=== PATIENT | female | born 1995 | race Caucasian/White ===

== ENCOUNTER 2019-09-12 11:08 | Outpatient (CLI) | payer BC ==
--- NOTE | 2019-09-12 12:56 | Ultrasound Report ---
Reason: POSITIVE TEST Procedure Date: 09/12/2019 Accession Number: [id number] / [id number] Procedure: US - OB First Trimester CPT Code: Final Report FULL RESULT: EXAM: FIRST TRIMESTER OBSTETRIC ULTRASOUND (Less than 11 weeks) EXAM DATE: 09/12/2019 12:12 PM. CLINICAL HISTORY: POSITIVE TEST. LMP: 06/11/2019. COMPARISONS: None. TECHNIQUE: Transabdominal ultrasound examination with static image documentation. CLINICAL DATES: EGA 13 weeks, 2 days with MONSERRAT 03/17/2020 based on LMP. ASSESSMENT: Gestational Sac: Single intrauterine. Mean gestational sac diameter: 70 mm = 13 weeks, 4 days. Embryo: CRL (crown-rump length) 72 mm = 13 weeks, 2 days. Cardiac activity: 156 beats per minute. Yolk sac: Not seen. Amniotic fluid: Not accurately assessed at this gestational age. Early placenta: Posterior. Other: No perigestational fluid collection demonstrated. MATERNAL STRUCTURES: Uterus: Anteverted. Unremarkable. Cervix: Closed. 4.1 cm on transabdominal imaging. Right Ovary/Adnexa: The ovary measures 2.8 x 1.7 x 2.2 cm, volume 5.4 cc. Corpus luteal cyst measures 1.6 x 1.2 x 1.2 cm.. Left Ovary/Adnexa: The ovary measures 2.5 x 0.8 x 3.2 cm, volume 3.1 cc. Unremarkable. Free Fluid: None. Other: None. IMPRESSION: 1. Single viable intrauterine at EGA 03/17/2020 with MONSERRAT based on crown-rump length, which is concordant with clinical dates. 2. Assigned dating is MONSERRAT 03/17/2020 based on current ultrasound and LMP. RADIA
== END 2019-09-12 11:09 | disposition home or self-care (01) ==
LOC: DI 11:08
PROVIDERS: ATTEND Advanced Practice Midwife
DX: Z32.01 Encounter for pregnancy test, result positive (principal)
CPT/HCPCS: 76801

== ENCOUNTER 2019-09-14 07:00 | Outpatient (CLI) | payer BC ==
[2019-09-14 18:51] LABS: MUDS CUTOFF CONCENTRATIONS CUTOFF CONC BELOW:
[2019-09-14 19:17] LABS: BILIRUBIN,URINE NEGATIVE (NEGATIVE); GLUCOSE, URINE (UA) NEGATIVE (NEGATIVE); KETONES,URINE (UA) NEGATIVE (NEGATIVE); LEUKOCYTE ESTERASE, URINE NEGATIVE (NEGATIVE); NITRITE,URINE NEGATIVE (NEGATIVE); OCCULT BLOOD,URINE NEGATIVE (NEGATIVE); PROTEIN,URINE NEGATIVE (NEGATIVE); UROBILINOGEN,URINE 0.2 (NORMAL) E.U./dL (NORMAL)
[2019-09-14 19:27] LABS: AMPHETAMINE SCREEN,URINE NEGATIVE (NEGATIVE); BENZODIAZEPINES SCREEN, URINE NEGATIVE (NEGATIVE); COCAINE SCREEN URINE NEGATIVE (NEGATIVE); METHADONE SCREEN, URINE NEGATIVE (NEGATIVE); METHAMPHETAMINES SCREEN, URINE NEGATIVE (NEGATIVE); OPIATE SCREEN, URINE NEGATIVE (NEGATIVE); OXYCODONE SCREEN, URINE NEGATIVE (NEGATIVE); PROPOXYPHENE SCREEN, URINE NEGATIVE (NEGATIVE); TRICYCLIC ANTIDEPRESSANT,URINE NEGATIVE (NEGATIVE)
[2019-09-14 19:35] LABS: CLARITY,URINE CLEAR (CLEAR)
[2019-09-14 19:36] LABS: BACTERIA,URINE None Seen /HPF (None Seen); RBC,URINE None Seen /HPF (0-5); SQUAMOUS EPITHELIAL CELL,UR RARE Squamous (<= Few)
[2019-09-14 19:37] LABS: AMORPHOUS SEDIMENT,UR Marked /LPF
[2019-09-14 23:46] LABS: TRICHOMONAS VAGINALIS DNA NEGATIVE (NEGATIVE)
== END 2019-09-14 23:59 | disposition home or self-care (01) ==
LOC: LAB.R 07:00
PROVIDERS: ATTEND Advanced Practice Midwife
DX: Z34.90 Encounter for supervision of normal pregnancy, unspecified, unspecified trimester (principal); Z11.3 Encounter for screening for infections with a predominantly sexual mode of transmission
CPT/HCPCS: 80306; 81001; 87086; 87491; 87591; 87661

== ENCOUNTER 2019-10-15 09:14 | Outpatient (CLI) | payer BC ==
[2019-10-15 09:40] LABS: BASOPHILS % (AUTO) 0.4 %; EOSINOPHILS # (AUTO) 0.1 10^3/uL (0.0-0.7); EOSINOPHILS % (AUTO) 1.4 %; HGB - HEMOGLOBIN 12.7 g/dL (12.0-16.0); LYMPHOCYTES % (AUTO) 24.7 %; MEAN CORPUSCULAR HEMOGLOBIN 29.5 pg (27.0-31.0); MEAN CORPUSCULAR HGB CONC 33.4 g/dL (32.0-36.0); MEAN CORPUSCULAR VOLUME 88.2 fL (81.0-99.0); MONOCYTES # (AUTO) 0.6 10^3/uL (0.0-1.0); NEUTROPHILS # (AUTO) 5.3 10^3/uL (1.5-6.6); NEUTROPHILS % (AUTO) 66.1 %; PLT - PLATELET COUNT 177 10^3/uL (130-450); RED BLOOD COUNT 4.31 10^6/uL (4.20-5.40); RED CELL DISTRIBUTION WIDTH 12.5 % (12.0-15.0)
[2019-10-16 12:40] LABS: HIV AG/AB 4TH GEN NON-REACTIVE (NON-REACTIVE)
[2019-10-16 13:05] LABS: HEPATITIS B SURFACE ANTIGEN NON-REACTIVE (NON-REACTIVE); HEPATITIS C ANTIBODY NON-REACTIVE (NON-REACTIVE)
== END 2019-10-15 09:15 | disposition home or self-care (01) ==
LOC: LAB 09:14
PROVIDERS: ATTEND Advanced Practice Midwife
DX: Z34.90 Encounter for supervision of normal pregnancy, unspecified, unspecified trimester (principal); Z36.0 Encounter for antenatal screening for chromosomal anomalies
CPT/HCPCS: 36415; 81511; 81599; 85025; 86592; 86762; 86803; 86850; 86900; 86901; 87340; 87389

== ENCOUNTER 2019-10-30 11:59 | Outpatient (CLI) | payer BC ==
--- NOTE | 2019-10-30 15:37 | Ultrasound Report ---
PROCEDURE: OB Detailed Eval INDICATIONS: SCREENING OUTSIDE/PRIOR DATING DATA: Last menstrual period (LMP): 06/11/2019. LMP-based estimated date of delivery (MONSERRAT): 03/17/2020. First dating scan (date and location): 09/12/2019. Estimated date of delivery (MONSERRAT) from first dating scan: 03/17/2020. TECHNIQUE: Real-time scanning was performed of the fetus, with image documentation and biometric measurements. COMPARISON: OB ultrasound 09/12/2019 FINDINGS: General: A single living intrauterine gestation is present. Presentation: Variable Placenta: Placental position is posterior, without previa. Amniotic fluid index: 14.7 cm cm, 55th percentile for gestational age. 4.0 cm heart rate: 140 beats per minute. Maternal cervical canal: 4.0 cm long; normal length is 2.5 cm or more. biometrics: Biparietal diameter: 4.8 cm 20 weeks 3 days Head circumference: 17.5 cm 20 weeks 0 days Abdominal circumference: 15 cm 20 weeks 1 day Femur length: 3.1 cm 19 weeks 3 days Estimated gestational age from initial scan: 20 weeks 1 day Composite gestational age from present scan: 19 weeks 5 days Estimated weight and percentile: 318 g, 30th percentile Measurement variability in biometric dating: +/- 10 days from 12-20 weeks gestation, +/- 2 weeks from 20-30 weeks gestation, +/- 3 weeks at 30 weeks gestation or later. Anatomic survey: Neuro: Ventricles are normal at less than 10 mm. Cisterna magna is normal at 3-11 mm. Cerebellum i s normal in size and morphology. Nuchal skin fold: Normal at less than 6 mm between 14 and 20 weeks gestational age. Face: Nose and lips, facial profile are normal. Spine: No evidence for spina bifida. Heart: 4-chambered heart and outflow tracts are suboptimally evaluated. Diaphragm: Diaphragm is intact. Stomach: Left-sided stomach is present. Kidneys: No hydronephrosis. Normal is less than 5 mm in 2nd trimester, less than 7 mm in 3rd trimester. Cord: 3 vessel cord has orthotopic insertion. Bladder: Normal in size. Extremities: All 4 extremities are visualized. IMPRESSION: 1. Single live intrauterine with ultrasound gestational age today 19 weeks 5 days compared to 20 weeks 1 day from initial ultrasound. 2. 4 chambered heart and outflow tracts are suboptimally evaluated. Recommend follow-up ultrasound fo r additional evaluation. Reviewed by: Yvonne Steele MD on 10/30/2019 3:35 PM PDT Approved by: Yvonne Steele MD on 10/30/2019 3:35 PM PDT Station ID: [id number]
== END 2019-10-30 12:00 | disposition home or self-care (01) ==
LOC: DI 11:59
PROVIDERS: ATTEND Advanced Practice Midwife
DX: Z36.89 Encounter for other specified antenatal screening (principal)
CPT/HCPCS: 76811

== ENCOUNTER 2019-11-21 14:35 | Outpatient (CLI) | payer BC ==
--- NOTE | 2019-11-21 18:24 | Ultrasound Report ---
PROCEDURE: OB F/U or Repeat INDICATIONS: SUPERVISION OF OUTSIDE/PRIOR DATING DATA: Last menstrual period (LMP): 06/11/2019. LMP-based estimated date of delivery (MONSERRAT): 03/17/2020. First dating scan (date and location): 09/12/2019, Dr. Goodman's office. Estimated date of delivery (MONSERRAT) from first dating scan: 03/17/2020. TECHNIQUE: Real-time scanning was performed of the fetus, with image documentation and biometric measurements. Endovaginal scanning: Not performed COMPARISON: OB ultrasound dated 10/30/2019 FINDINGS: General: A single living intrauterine gestation is present. Presentation: Breech Placenta: Placental position is posterior, without previa. Amniotic fluid index: 14.1 cm, 42.9 are sent for gestational age. heart rate: 136 beats per minute. Maternal cervical canal: 4.6 cm long; normal length is 2.5 cm or more. Other: The four-chamber heart and ventricular outflow tracts have a normal sonographic appearance. IMPRESSION: 1. Single live uterine gestation in breech position. 2. Normal sonographic appearance of the four-chamber heart and ventricular outflow tracts. Reviewed by: Makenna Costello MD on 11/21/2019 6:23 PM PDT Approved by: Makenna Costello MD on 11/21/2019 6:23 PM PDT Station ID: [id number]
== END 2019-11-21 14:36 | disposition home or self-care (01) ==
LOC: DI 14:35
PROVIDERS: ATTEND Advanced Practice Midwife
DX: Z34.90 Encounter for supervision of normal pregnancy, unspecified, unspecified trimester (principal)
CPT/HCPCS: 76816

== ENCOUNTER 2019-12-25 13:20 | Outpatient (CLI) | payer BC ==
[2019-12-25 14:43] LABS: HGB - HEMOGLOBIN 12.4 g/dL (12.0-16.0); MEAN CORPUSCULAR HEMOGLOBIN 31.1 pg (27.0-31.0); MEAN CORPUSCULAR HGB CONC 34.1 g/dL (32.0-36.0); MEAN CORPUSCULAR VOLUME 91.2 fL (81.0-99.0); MEAN PLATELET VOLUME 10.8 fL (7.9-10.8); RED BLOOD COUNT 3.99 10^6/uL (4.20-5.40); RED CELL DISTRIBUTION WIDTH 12.9 % (12.0-15.0); WHITE BLOOD COUNT 9.6 x10^3/uL (4.8-10.8)
== END 2019-12-25 13:21 | disposition home or self-care (01) ==
LOC: LAB 13:20
PROVIDERS: ATTEND Advanced Practice Midwife
DX: Z34.90 Encounter for supervision of normal pregnancy, unspecified, unspecified trimester (principal); Z36.89 Encounter for other specified antenatal screening
CPT/HCPCS: 36415; 82950; 85027

== ENCOUNTER 2020-02-19 08:00 | Outpatient (CLI) | payer BC | END 2020-02-19 23:59 | disposition home or self-care (01) | LOC: LAB.R 08:00 | PROVIDERS: ATTEND Nurse Practitioner Obstetrics & Gynecology | DX: Z36.85 Encounter for antenatal screening for Streptococcus B (principal) | CPT/HCPCS: 87797 ==

== ENCOUNTER 2020-02-24 09:15 | Outpatient (CLI) | payer BC ==
[2020-02-24 09:40] VITALS: BP 103/61
[2020-02-24] MEDS ORDERED: ACETAMINOPHEN 500 MG TABLET PO ONE (10:00)
[2020-02-24 10:38] LABS: BILIRUBIN,URINE NEGATIVE (NEGATIVE); GLUCOSE, URINE (UA) NEGATIVE (NEGATIVE); KETONES,URINE (UA) TRACE mg/dL (NEGATIVE); LEUKOCYTE ESTERASE, URINE NEGATIVE (NEGATIVE); NITRITE,URINE NEGATIVE (NEGATIVE); OCCULT BLOOD,URINE NEGATIVE (NEGATIVE); PROTEIN,URINE NEGATIVE (NEGATIVE); UROBILINOGEN,URINE 0.2 (NORMAL) E.U./dL (NORMAL)
[2020-02-24 10:50] LABS: CLARITY,URINE CLEAR (CLEAR)
--- NOTE | 2020-02-24 11:16 | PROVIDER PROGRESS NOTE ---
- HPI Chief Complaint: Headache Current : Current EDU 03/17/20 Gestation 36 Weeks and 6 Days 3 Para 1 Vital Signs Temperature 36.9 C 02/24/20 09:31 Heart Rate 108 H 02/24/20 09:31 Respiratory Rate 20 02/24/20 09:31 Blood Pressure 103/61 02/24/20 09:31 O2 Saturation 98 02/24/20 09:31 Temperature 36.9 C 02/24/20 09:31 Heart Rate 108 H 02/24/20 09:31 Respiratory Rate 20 02/24/20 09:31 Blood Pressure 103/61 02/24/20 09:31 O2 Saturation 98 02/24/20 09:31 - Procedures OB Procedure Performed: NST NST Procedure: Start time 924 Stop time 1024 Service Date of procedure: 02/24/20 - Plan Plan: HPI: Elise is a 24yo @ 36.6wks gestation who presents on 02/24/2020 with c/o frontal headache in the presence of blurred vision. She reports her headache started yesterday evening and was manageable but it was the blurred vision that made her feel slightly concerned. She states consistent movement was present and she did not have any swelling so she thought perhaps she was just tired so she went to sleep. She woke up this morning and approximately 1 hour a fter being up and around she started to notice her headache return. She denies worsening headache. Blurred vision present but less significant than last night. She has not taken anything for her headache. She admittedly has not consumed very much water over the past several days. She denies swelling and RUQ or epigastric pain. She denies vaginal bleeding or leakage of fluid. She reports +FM. O: BP normotensive. Has been normotensive throughout her course. Heart RRR w/o M/G/R, lungs CTAB. Abdomen gravid, soft, nontender. No RUQ pain. DTRs WNL - no clonus FHR baseline 140, moderate variability, + accels, no decels Urine protein - negative 1000mg PO Tylenol x 1 administered - pt improved A: 24yo @ 36.6wks gestation FHR Category I Normotensive Headache improved with administration of tylenol P: Pt released home with precautions. Encouraged increased fluid intake. Encouraged tylenol 1000mg q 8hr PRN headache. Reviewed PIH warning s/sx and when to present. Pt has f/u in the office tomorrow - advised her to keep this appt. Pt verbalized understanding and agrees to above plan. Denies further questions or concerns at this time. NST: Performed 02/24/2020; Read 02/24/2020 Start time 0925 Stop time 1025 Reactive. FHR baseline 140, moderate variability, + accels, no decels DIAGNOSIS: Headache in
== END 2020-02-24 11:00 | disposition home or self-care (01) ==
LOC: WFO 09:15 → FBP 09:17 → WFO 11:00
PROVIDERS: ATTEND Nurse Practitioner Obstetrics & Gynecology
DX: O99.891 Other specified diseases and conditions complicating pregnancy (principal); R51.9 Headache, unspecified; H53.8 Other visual disturbances
CPT/HCPCS: 81003; 99214; A9270

== ENCOUNTER 2020-03-11 17:00 | Observation (INO) | payer BC ==
[2020-03-11] MEDS ORDERED: SODIUM CHLORIDE FLUSH 0.9% 10 ML SYRINGE IVP PRN (17:34)
[2020-03-11] MEDS ORDERED: miSOPROStoL 100 MCG TABLET BC ONE (17:35)
[2020-03-11 18:01] LABS: BASOPHILS % (AUTO) 0.3 %; EOSINOPHILS # (AUTO) 0.3 10^3/uL (0.0-0.7); EOSINOPHILS % (AUTO) 3.5 %; HGB - HEMOGLOBIN 11.1 g/dL (12.0-16.0); LYMPHOCYTES # (AUTO) 1.8 10^3/uL (1.5-3.5); LYMPHOCYTES % (AUTO) 19.3 %; MEAN CORPUSCULAR HEMOGLOBIN 29.4 pg (27.0-31.0); MEAN CORPUSCULAR HGB CONC 32.9 g/dL (32.0-36.0); MEAN CORPUSCULAR VOLUME 89.4 fL (81.0-99.0); MEAN PLATELET VOLUME 11.3 fL (7.9-10.8); MONOCYTES # (AUTO) 0.7 10^3/uL (0.0-1.0); MONOCYTES % (AUTO) 7.1 %; NEUTROPHILS # (AUTO) 6.6 10^3/uL (1.5-6.6); NEUTROPHILS % (AUTO) 69.5 %; PLT - PLATELET COUNT 178 10^3/uL (130-450); RED BLOOD COUNT 3.77 10^6/uL (4.20-5.40); RED CELL DISTRIBUTION WIDTH 12.7 % (12.0-15.0); WHITE BLOOD COUNT 9.5 x10^3/uL (4.8-10.8)
[2020-03-11 22:02] VITALS: BP 103/59
[2020-03-12] MEDS ORDERED: SODIUM CHLORIDE FLUSH 0.9% 10 ML SYRINGE IVP SCH (01:00)
--- NOTE | 2020-03-12 06:54 | PROVIDER PROGRESS NOTE ---
- HPI Chief Complaint: Other Current : Current EDU 03/17/20 Gestation 39 Weeks and 1 Days 3 Vital Signs Temperature 37.1 C 03/11/20 17:22 Heart Rate 90 03/11/20 17:22 Respiratory Rate 18 03/11/20 17:22 Blood Pressure 104/64 03/11/20 17:22 Temperature 36.9 C 03/11/20 21:55 Heart Rate 71 03/11/20 21:55 Respiratory Rate 18 03/11/20 21:55 Blood Pressure 103/59 L 03/11/20 21:55 O2 Saturation 96 03/11/20 21:55 - Procedures OB Procedure Performed: NST Diagnosis/Indication for NST: Other Service Date of procedure: 03/11/20 - Plan Plan: HPI: Elise presents today at approximately 1700 to [facility] for outpatient cervical ripening in anticipation for induction of labor secondary to severe, diffuse body rash. She experienced a similar rash in her previous and was given OTC cream by a visual basic .net developer which improved her rash. She states her last the onset of the rash occurred much earlier in at approximat ning 23wks gestation. She reports her current rash has been only minimally improved by the use of the OTC cream. She desires induction of labor at this time secondarily. She denies vaginal bleeding or leakage of fluid and denies contractions. She reports +FM. She is accompanied by her who is supportive at the bedside. Their mood is good and they are excited to start the process of having a baby. The pt states she would like to labor at home as long as it is safe for her to do so. She denies recent contact with any known COVID-19 positive individuals. She denies cough, fever, SOB, congestion, headache, or change in bowel habits. BP normotensive, T: afebrile. IV access obtained. Pt administered 50mcg BC misoprostol. Continuous monitoring x 4 hours - FHR Category I. FHR baseline 130s, moderate variability, + accels, no decels Intermittent uterine contractions q 2-5 minutes which palpate mild with soft resting tone. Pt rates contractions 0-2 on a pain scale. Following 4 hours of continuous monitoring the pt was released home with precautions. She was given instructions to return 24 hours after administration of misoprostol (1800). Will continue pre-induction cervical ripening vs initiation of pitocin at that time. Pt verbalized understanding and agrees to above plan. She denies further questions or concerns at this time.
== END 2020-03-11 22:06 | disposition home or self-care (01) ==
LOC: WFO 17:00 → FBP 17:04 → WFO 17:33 → FBP 17:34
PROVIDERS: ADMIT Nurse Practitioner Obstetrics & Gynecology; ATTEND Nurse Practitioner Obstetrics & Gynecology
DX: O99.891 Other specified diseases and conditions complicating pregnancy (principal); R21 Rash and other nonspecific skin eruption; Z3A.39 39 weeks gestation of pregnancy; Z20.828 Contact with and (suspected) exposure to other viral communicable diseases
CPT/HCPCS: 36415; 85025; 86850; 86900; 86901; 87635; A9270; G0378

== ENCOUNTER 2020-03-12 17:00 | Inpatient (IN) | payer BC ==
[2020-03-12] MEDS ORDERED: ACETAMINOPHEN 325 MG TABLET PO PRN (17:39)
[2020-03-12] MEDS ORDERED: SODIUM CHLORIDE FLUSH 0.9% 10 ML SYRINGE IVP PRN (17:39)
[2020-03-12] MEDS ORDERED: miSOPROStoL 200 MCG TABLET BC PRN (17:39)
[2020-03-12] MEDS ORDERED: ONDANSETRON 4 MG/2 ML VIAL IVP PRN (17:39)
[2020-03-12] MEDS ORDERED: LIDOCAINE-MPF 1% 30 ML VIAL ID PRN (17:39)
[2020-03-12] MEDS ORDERED: TRANEXAMIC ACID 1,000 MG in SODIUM CHLORIDE 0.9% 100ML 100 ML IV PRN (17:39)
[2020-03-12] MEDS ORDERED: OXYTOCIN 10 UNIT/ML VIAL IM PRN (17:39)
[2020-03-12] MEDS ORDERED: OXYTOCIN/SODIUM CHLORIDE 500 ML IV PRN (17:39)
[2020-03-12] MEDS ORDERED: CARBOPROST TROMETHAMINE 250 MCG/ML AMP IM PRN (17:39)
[2020-03-12] MEDS ORDERED: METHYLERGONOVINE 0.2 MG/ML VIAL IM PRN (17:39)
--- NOTE | 2020-03-12 17:49 | HISTORY & PHYSICAL EXAMINATION ---
Admit History - Visit Reason Visit Reason: Other - : 3 Parity: 1 Premature: 0 Ectopic: 0 : 1 Care: positive: [facility] Risk/History: positive: None Complications This : positive: None Smoking Status: Never smoker - Mother's Labs Mother's Blood Type: positive: O Mother's RH: positive: Positive GBS: positive: Group B Step Negative Rubella Status: positive: Non-immune Meds/Allgy - Allergies Allergies/Adverse Reactions: Allergies Allergy/AdvReac Type Severity Reaction Status Date / Time No Known Drug Allergies Allergy Verified 02/24/20 10:13 Review of Systems - Constitutional Constitutional: denies: Fatigue, Fever, Chills, Malaise - Eyes Eyes: denies: Blurred vision, Spots in vision, Dipolpia - Cardiovascular Cariovascular: denies: Irregular heart rate, Palpitations, Chest pain, Edema - Respiratory Respiratory: denies: Cough, SOB at rest - Gastrointestinal Gastrointestinal: denies: Constipation, Diarrhea, Change in bowel habits, Nausea, Vomiting - Integumentary Integumentary: reports: Rash, Pruritis - Neurological Neurological: denies: Headache Physical - Abdominal Exam Vital Signs: Temp Pulse Resp BP Pulse Ox 36.7 C 82 18 120/64 03/12/20 17:12 03/12/20 17:12 03/12/20 17:12 03/12/20 17:12 Contraction Frequency (min/apart): 4-8 Contraction Intensity: positive: Mild Uterine Resting Tone: positive: Soft - Monitoring Heart Rate Baseline: 125 Strip Review: positive: Category I - Presentation Presentation: positive: Vertex - Vaginal Exam Membranes: positive: Membranes intact Dilation (in cm): 1.5 Effacement (%): 50 Station: positive: -3 Cervical Position: positive: Posterior - Speculum Exam Speculum Exam Performed: positive: No Plan for Labor - Plan For Labor I expect patient to be DC'd or transferred within 96 hours.: Yes Plan for Labor: HPI: This 24yo @ 39.2wks gestation presents to [facility] for induction of labor secondary to persistent and progressive diffuse body rash. She experienced the same rash in her last with onset at approximately 23 wks gestation. She was seen by a licensed mortician at that time who did not feel the rash was PUPPPS. She was given topical steroids which ultimately helped. She has experienced the rash in this 4 other times but it was much less severe. She used the topical steriod and it resolved the rash previously but this time she states it has not helped at all. The rash spreads up and down her legs and onto her abdomen. She also states it has moved up her neck and onto her face which has never happened to her before. She states yesterday the rash began to improve and seems less red, irritating, and itchy today. She received misoprostol 50mcg BC for pre-induction cervical ripening on 03/11/2020 at approximately 1800. She was continuously monitored x 4 hours and released home with precautions and instructions to return in 24 hours (1700- 1800) or sooner PRN. She reports her contractions continued throughout the night but remained mild and she did not notice contractions this morning. Elise has been a patient of [facility] for the duration of her which has remained uncomplicated. She is non-immune to rubella and will receive MMR . Today she denies vaginal bleeding or leakage of fluid. She reports +FM. Dating criteria: LMP 06/11/2019 Initial US @ 13.2wks c/w LMP dating Serial exams - agree OB Hx: G1: 2017 SAB G2: 09/04/2018 @ 41.0wks delivered at [facility]. Epidural. Female. 10 min second stage. Complicated by polyhydramnios and had IOL. G3: Current Medications: PNV Allergies: NKDA PMHx: Hx of anemia; Rash Surgical Hx: none Social Hx: never smoker, no ETOH or IVDA. Jb - Active Duty. Family Hx: Diabetes - MGF, MGM, PGF, PGM; Arthritis - MGM, PGM; Hypertension - MGF; Cancer (unknown type) - MGM, MGF course: Inital US: 13.2wks IUP c/w LMP for MONSERRAT of 03/17/2020 O pos/Rubella non-immune MMR discussed Gentic testing: Quad ordered FAS: WNL. Suboptimal heart visualization- follow-up recommended. 3VC. Posterior placenta. EFW 30%. f/u ordered today f/u US: heart and ventricular outflow well visualized and wnl Glucola - 99 TDAP - 01/14/2020 FLU: 02/11/2020 GBS at 36.1wks- neg HSV: denies self and partner Breast pump Rx : 01/14/2020 MOD: . Spouse; Jb. 1yo daughter Yoel. Baby- BOY(Bolivar?Rollo?) pp contraception: Paragard or condoms PAP: Per pt 2018- WNL. Next due 2020 Physical Exam: Normocephalic, atraumatic Diffuse rash noted to anterior aspect of lower extremeites bilaterally with extension to lower abdomen Heart RRR w/o M/G/R Lungs CTAB Abdomen, gravid, soft, nontender EFW 3700g FHR baseline 125, moderate variability, + accels, no decels Contractions palpate mild every 4-8 minutes with soft resting tone. Pt rates contractions as mild. SVE 1.5/50/-3, posterior, soft. Vertex. Bilateral LE's trace edema Mood is good Assessment: 24yo @ 39.2wks gestation by 13wk U/S c/w LMP dating Induction of labor secondary to diffuse body rash FHR Category I GBS neg Plan: Continuous monitoring Misoprostol 50mcg BC q 4 hours Encouraged ambulation and position changes. Juan TURNERN Anticipate . Reviewed plan of care with pt, partner, and labor RN at the bedside who are all in agreement with above plan and deny questions or concerns at this time.
[2020-03-12] MEDS ORDERED: SODIUM CHLORIDE 0.9% 100ML 100 ML IV ONE (18:05)
[2020-03-12] MEDS: miSOPROStoL 100 MCG TABLET BC SCH ×2 (18:35→22:50)
[2020-03-12] MEDS: LACTATED RINGERS 1,000 ML IV SCH (22:01)
--- NOTE | 2020-03-12 23:06 | PROVIDER PROGRESS NOTE ---
Labor Progress Note - Uterine Monitoring Uterine Monitoring Mode: positive: External toco Contraction Frequency (min/apart): 2-6 Contraction Intensity: positive: Mild Uterine Resting Tone: positive: Soft - Monitoring Monitor Mode: positive: External ultrasound Heart Rate Baseline: 120 Heart Rate Variability: positive: Moderate (6-25 bmp) Accelerations: positive: Present, 15x15 Decelerations: positive: Variable, Intermittent (<50% x20 min) Strip Review: positive: Category I - Labor Progress Note Labor Progress Note/Additional Text: S: Feeling very little discomfort with contractions. She states she can tell when she is having them but rates them 1-2 on a pain scale. She does feel like she is too nervous/anxious/excited to sleep but has been laying in bed trying to rest. sleeping at the bedside. Mood is good. O: FHR basleine 120s, moderate variabiliy, + accels, occasional variable deceleration resolved with position change and 500mL fluid bolus. Contractions palpate mild every 2-6 minutes with soft resting tone. SVE deferred (last check 1.550/-3, posterior, soft, vertex). Intact membranes S/p 2 doses of 50mcg BC misoprostol A: 24yo @ 39.2wks gestation by LMP c/w 13wk U/S Induction of labor FHR Category I GBS neg P: Continuous monitoring Continue misoprostol 50mcg BC q 4 hours for pre-induction cervical ripening Encouraged rest. Anticipate . Pt denies questions or concerns at this time.
[2020-03-13] MEDS ORDERED: SODIUM CHLORIDE FLUSH 0.9% 10 ML SYRINGE IVP SCH (01:00)
[2020-03-13] MEDS: fentaNYL 100 MCG/2 ML VIAL IVP PRN ×2 (04:28→05:43)
--- NOTE | 2020-03-13 04:40 | PROVIDER PROGRESS NOTE ---
Labor Progress Note - Uterine Monitoring Uterine Monitoring Mode: positive: External toco Contraction Frequency (min/apart): 2-3 Contraction Intensity: positive: Moderate to strong Uterine Resting Tone: positive: Soft - Monitoring Monitor Mode: positive: External ultrasound Heart Rate Baseline: 130 Heart Rate Variability: positive: Moderate (6-25 bmp) Accelerations: positive: Present, 15x15 Decelerations: positive: Variable, Intermittent (<50% x20 min) Strip Review: positive: Category II - Vaginal Exam Dilation (in cm): 4 Effacement (%): 80 Station: -1 Cervical Position: Midposition - Labor Progress Note Labor Progress Note/Additional Text: S: Breathing through contractions and coping well. She states she definitely feels a change in the intensity of the contractions and is unable to talk through them. Sitting on exercise ball at the bedside helps. Experiencing some mild vaginal bleeding which made her feel worried. She denies abdominal pain outside of contractions. supportive at the bedside. O: BP 117/64, HR 58 FHR baseline 130s, moderate variability, + accels, intermittent variable decelerations SROM at 0310 noted to be a moderate amount of clear fluid. SVE 4/80/-1, midposition with bulging forebag noted. Forebag released and noted to be a copious amount of clear fluid Vaginal bleeding mild A: 24yo @ 39.3wks gestation by LMP c/w 13wks U/S Active labor FHR Category II - overall reassuring Partial placental abruption vs rapid cervical dilation - suspect partial abruption. and maternal status reassuring. GBS negative P: Continuous monitoring Fentanyl PRN - pt does not desire epidural Anticipate Reviewed pathophysiology of placenta and discussed placental abruption with pt and . They both verbalized understanding and agree to above plan. They deny further questions or concerns at this time.
[2020-03-13] MEDS ORDERED: fentaNYL 100 MCG/2 ML VIAL IVP PRN (06:30)
--- NOTE | 2020-03-13 06:33 | PROVIDER PROGRESS NOTE ---
Labor Progress Note - Uterine Monitoring Uterine Monitoring Mode: positive: External toco Contraction Frequency (min/apart): 2-5 Contraction Intensity: positive: Strong Uterine Resting Tone: positive: Soft - Monitoring Monitor Mode: positive: External ultrasound Heart Rate Baseline: 140 Heart Rate Variability: positive: Moderate (6-25 bmp) Accelerations: positive: Present, 15x15 Decelerations: positive: Variable, Recurrent (>50% x20 min) Strip Review: positive: Category II - Vaginal Exam Dilation (in cm): 6 Effacement (%): 90 Station: -1 Cervical Position: Anterior - Labor Progress Note Labor Progress Note/Additional Text: S: Breathing through contractions and coping well. Has not noticed increased bleeding since last examination. Standing and bedside swaying side to side with support. Mood is good. O: FHR baseline 140s, moderate variability, + accels, recurrent variable decelerations Contractions palpate strong every 2-4 minutes with soft resting tone SVE 6/90/-1, anterior. Vertex. Minimal bleeding with SVE. Amnioinfusion initiated @ 0625 A: 24yo @ 39.3wks gestation FHR Category II Amnioinfusion with 300mL bolus and 150mL/hr maintenance GBS neg P: Continuous monitoring Fentanyl IV x 1 additional time and advises cessation secondary to hx of p reciptious labor Encouraged frequent position changes. Anticipate
[2020-03-13] MEDS ORDERED: BUPIVACAINE 0.25% PF 10 ML VIAL ONE (08:25)
[2020-03-13] MEDS ORDERED: fentaNYL 100 MCG/2 ML VIAL ONE (08:25)
[2020-03-13] MEDS ORDERED: ROPIVACAINE 0.2% 200 MG/100 ML BAG EP ONE (08:26)
[2020-03-13] MEDS: LACTATED RINGERS 1,000 ML IV SCH (08:50)
[2020-03-13] MEDS ORDERED: METOCLOPRAMIDE 10 MG/2 ML VIAL IVP PRN (08:56)
[2020-03-13] MEDS ORDERED: ePHEDrine 50 MG/ML VIAL IVP PRN (08:56)
[2020-03-13] MEDS ORDERED: diphenhydrAMINE INJ 50 MG/ML VIAL IVP PRN (08:56)
[2020-03-13] MEDS ORDERED: NALOXONE 0.4 MG/ML VIAL IVP PRN (08:56)
[2020-03-13] MEDS ORDERED: ROPIVACAINE 0.2% 200 MG/100 ML BAG EP PRN (08:56)
[2020-03-13] MEDS ORDERED: ONDANSETRON 4 MG/2 ML VIAL IVP PRN (08:56)
[2020-03-13] MEDS ORDERED: NALBUPHINE 10 MG/ML AMP IVP PRN (08:56)
--- NOTE | 2020-03-13 08:57 | ANESTHESIA ---
Pre-Anesthesia VS, & Labs - Diagnosis active labor - Procedure labor epidural Vital Signs: Temp Pulse Resp BP Pulse Ox 36.7 C 82 18 120/64 03/12/20 17:12 03/12/20 17:12 03/12/20 17:12 03/12/20 17:12 Height: 5 ft 4 in Weight (kg): 91.172 kg Body Mass Index: 34.4 BMI Classification: Obese - NPO >8 hours - Is Patient ?: Yes - Lab Results Lab results reviewed: Yes Home Medications and Allergies Active Medications Acetaminophen (Tylenol) 650 mg PO Q6H PRN PRN Reason: Pain or Fever Carboprost Tromethamine (Hemabate) 250 mcg IM Q15M PRN PRN Reason: Step 4: Hemorrhage protocol Stop: 03/17/20 17:40 Fentanyl (Fentanyl) 100 mcg IVP Q1H PRN PRN Reason: PAIN Last Admin: 03/13/20 06:36 Dose: 100 mcg Documented by: Oxytocin/Sodium Chloride (Pitocin/Sodium Chloride) 500 mls @ 999 mls/hr IV PRN PRN; Protocol PRN Reason: POST- HEMORR PREVENTION Stop: 03/17/20 17:40 Tranexamic Acid 1,000 mg/ (Sodium Chloride) 110 mls @ 660 mls/hr IV .ONCE PRN PRN Reason: EBL >1200mL and within 3hr Stop: 03/17/20 17:40 Lactated Ringer's (Lr) 1,000 mls @ 100 mls/hr IV .Q10H GREER Last Admin: 03/12/20 22:01 Dose: 500 mls/hr Documented by: Lidocaine HCl (Xylocaine-Mpf 1% Vial) 30 ml ID .ONCE PRN PRN Reason: PERINEAL REPAIR Stop: 03/17/20 17:40 Methylergonovine Maleate (Methergine Inj) 0.2 mg IM .ONCE PRN PRN Reason: Step 2: Hemorrhage protocol Stop: 03/17/20 17:40 Misoprostol (Cytotec) 800 mcg BC .ONCE PRN PRN Reason: Step 3: Hemorrhage protocol Stop: 03/17/20 17:40 Misoprostol (Cytotec) 50 mcg BC Q4HR GREER Last Admin: 03/12/20 22:50 Dose: 50 mcg Documented by: Ondansetron HCl (Zofran Inj) 4 mg IVP Q4HR PRN PRN Reason: Nausea / Vomiting Oxytocin (Pitocin) 10 unit IM .ONCE PRN PRN Reason: Step one: If no IV access Stop: 03/17/20 17:40 Sodium Chloride (Normal Saline Flush 0.9%) 10 ml IVP 0100,0900,1700 GREER Sodium Chloride (Normal Saline Flush 0.9%) 10 ml IVP PRN PRN PRN Reason: NEEDED PER PROVIDER ORDERS Allergies/Adverse Reactions: Allergies Allergy/AdvReac Type Severity Reaction Status Date / Time No Known Drug Allergies Allergy Verified 02/24/20 10:13 Anes History & Medical History - Anesthetic History Anesthesia Complications: reports: No previous complications Family history of Anesthesia Complications: Denies Family history of Malignant Hyperthermia: Denies - Medical History Smoking Status: Never smoker - Obstetrical History : 3 Parity: 1 Events: positive: None Complications: positive: None Exam General: Alert, Oriented x3, Cooperative, No acute distress Plan Anesthesia Type: Epidural Consent for Procedure(s) Verified and Reviewed: Yes Code Status: Attempt Resuscitation ASA classification: 2-Mild systemic disease Is this case an emergency?: No
[2020-03-13] MEDS ORDERED: WITCH HAZEL/GLYCERIN 1 PAD TOP PRN (10:10)
[2020-03-13] MEDS ORDERED: HYDROCORTISONE 1% CREAM 28 GM TUBE PR PRN (10:10)
--- NOTE | 2020-03-13 10:29 | DELIVERY NOTE ---
Delivery Note - Labor Labor: positive: Augmented by ARM - Infant Delivery Method Delivery Method: positive: Spontaneous vaginal delivery - Cervical Ripening Method Cervical Ripening Method: positive: Misoprostil - Presentation Presentation: positive: Vertex, PIETER - left occiput anterior - Nuchal Cord Nuchal Cord: positive: Present, Reduced - Amniotic Fluid Description Amniotic Fluid Description: positive: Clear - Episiotomy Type Episiotomy Type: positive: None - Laceration Laceration: positive: None - Delivery Outcome Delivery Outcome: positive: Livebirth - [place] : positive: Placed in direct skin contact with mother, Stimulated, Warmed, [place] used Bruin sex: positive: Male - Cord Cord: positive: 3 vessels - Placenta Placenta: positive: Intact, Spontaneous - Estimated Blood Loss Estimated Blood Loss (in cc): 300 - Post Delivery Events Post Delivery Events: positive: No post delivery events - Delivery Comments (Free Text/Narrative) Delivery Comments (Free Text/Narrative): Labor: This 24yo @ 39.3wks gestation by LMP c/w 13wk U/S presented on 03/11/2020 for outpatient pre-induction cervical ripening with 50mcg BC misoprostol. She was monitored x 4 hours and released home with precautions. She returned 24 hours later on 03/12/2020. She received 3 total doses of 50mcg BC misoprostol for effective pre-induction cervical ripening and then progressed to labor spontaneously. SROM occurred at 0310 and was noted to be a moderate amount of clear fluid. She did experience mild vaginal bleeding and was continuously monitored throughout labor. Bleeding remained minimal. Initially placental abruption was suspected however bleeding remained minimal and both maternal and status remained reassuring. FHR Category II with recurrent variable decelerations. Amnioinfusion was initiated at 0625 and variable decelerations decreased in frequency, depth, and length and remained reassuring with moderate variability maintained throughout. Pt received 100mcg Fentanyl IV x 2. Epidural placed per maternal request. Pt progressed to c/c/+2 at 0952. : Normal of viable male on 03/13/2020 at 0959 for total second stage of 7 minutes. Nuchal cord x 1 reduced. The was stimulated, dried, and placed skin to skin. 's were 9/9 at 1 and 5 min respectively. Pitocin administered via IV for hemostasis. The umbilical cord was allowed to stop pulsating at which time it was doubly clamped by CNM and cut by FOB. 3VC. Cord blood was obtained. Placenta sent to pathology secondary to vaginal bleeding in labor. Fundal massage and gentle cord traction applied for active management of the third stage. Placenta delivered spontaneously and intact at 1004. EBL 300mL. Fourth stage: Uterine fundus firm and there is no excessive bleeding. The perineum, vagina, and cervix were inspected and found to be intact. Skin to skin contact initiated. Family bonding well. Both mother and baby were left in stable condition.
[2020-03-13] MEDS ORDERED: MEASLES,MUMPS & RUBELLA VACC 0.5 ML VIAL SUBQ ONE (12:00)
[2020-03-13] MEDS: ACETAMINOPHEN 500 MG TABLET PO PRN (20:28)
[2020-03-13] MEDS: DOCUSATE SODIUM 100 MG CAPSULE PO SCH (20:30)
[2020-03-13] MEDS: IBUPROFEN 800 MG TABLET PO SCH (20:30)
[2020-03-14] MEDS: ACETAMINOPHEN 500 MG TABLET PO PRN (06:38)
[2020-03-14] MEDS: IBUPROFEN 800 MG TABLET PO SCH (06:38)
[2020-03-14 07:59] VITALS: BP 105/53
[2020-03-14] MEDS: DOCUSATE SODIUM 100 MG CAPSULE PO SCH (08:01)
--- NOTE | 2020-03-14 11:02 | DISCHARGE SUMMARY ---
Discharge Summary - HPI History of Present Illness: Admit Date 03/12/2020 Discharge Date 03/14/2020 Diagnosis on Admission: 1. A 24yo at 39.3 week intrauterine 2. Pre-Induction Cervical Ripening for worsening rash Diagnosis on Discharge 1. A 24yo s/p spontaneous vaginal delivery on 03/13/2020 2. Normal recovery Brief History: She is a patient at [facility] who presented on 03/11/2020 for outpatient pre-induction cervical ripening, she then returned on 03/12/2020 for inpatient ripening. She received a total of 3 doses of misoprostol, the progressed to spontaneous labor. She delivered a viable male infant named Bolivar. Apgars were 9 and 9- and 1 and 5 minutes respectively. EBL 300mL. Perineum intact. She has been doing well in her course. She is ambulating and tolerating a regular diet. She is urinating without difficulty and her lochia is normal. Her pain is well controlled with oral medications. She will be discharged home today on day #1 without need for prescriptions. She intends to follow up with Midwifery at [facility] in 1, and 6 weeks for routine visit. She has been given precautions to call if she has any worsening fevers, chills, abdominal pain, increased bleeding or foul smelling vaginal lochia. - ALLERGIES Allergies/Adverse Reactions: Allergies Allergy/AdvReac Type Severity Reaction Status Date / Time No Known Drug Allergies Allergy Verified 02/24/20 10:13
--- NOTE | 2020-03-14 11:05 | PROVIDER PROGRESS NOTE ---
Subjective - Prog Note Date Prog Note Date: 03/14/20 Prog Note Time: 10:00 - Subjective Pt reports feeling: Improved Subjective: Final Progress Note S: Elise is resting in bed holding baby, FOB supportive at bedside. She reports her bleeding as moderate, but not heavy, and some cramping with . has recently improved with a visit from the fitness consultant. O: Fundus firm Lochia rubra- moderate well Perineum intact at S/P MMR vaccine A: 24 yo s/p on pp day 1 Normal recovery P: Continue routine pp care Evaluate for discharge home today Objective - Vital Signs/Intake & Output Vital Signs: Vital Signs x48h Temp Pulse Resp BP Pulse Ox 03/14/20 07:58 36.7 C 63 16 105/53 L 100 Intake & Output: Intake & Output 03/11/20 03/12/20 03/13/20 03/14/20 23:59 23:59 23:59 23:59 Intake Total 2500 1000 Output Total 800 Balance 1700 1000
--- NOTE | 2020-03-14 11:06 | Discharge Plan ---
Discharge Plan Problem Reviewed?: Yes Disposition: Home, Self Care Condition: Good Diet: Regular Activity Restrictions: No Restrictions Shower Restrictions: No Driving Restrictions: No Weight Bearing: Full Weight Additional Instructions or Follow Up instructions: Follow up with Midwifery at 1 and 6 weeks No Smoking: If you smoke, Please STOP! Call for help. Follow-up with: Kasey Goodman ARNP [Provider Admit Priv/Credential] -
[2020-03-14] MEDS ORDERED: MEASLES,MUMPS & RUBELLA VACC 0.5 ML VIAL SUBQ ONE (13:00)
--- NOTE | 2020-03-14 13:14 | Labor Flowsheet ---
Labor Flowsheet Datetime Report Generated by CPN: 03/14/2020 13:14 Datetime: 03/14/2020 12:50 VITAL SIGNS NBP Sys/Iveth/Mean (mmHg): 148 : 76 : 92 Pulse: 63 Datetime: 03/13/2020 11:39 SpO2 (%): 100 Datetime: 03/13/2020 10:04 Patient Care Comments: placenta Datetime: 03/13/2020 10:02 Stage of : Recovery Datetime: 03/13/2020 10:01 Medication Comments: PP pit started Datetime: 03/13/2020 09:59 Comments: male Datetime: 03/13/2020 09:58 UTERINE ACTIVITY Monitor Mode: External Frequency (min): 2-4 Quality: Strong Duration (sec): 60 Pattern: Normal: <= 5 Contractions in 10 Minutes Resting Tone (Palpate): Relaxed FHR Baseline Changes: No Baseline Change Variability: Moderate 6-25 bpm Accelerations: None Datetime: 03/13/2020 09:54 LaborFlag: Labor Datetime: 03/13/2020 09:48 VAGINAL EXAM Dilatation (cm): 10.0 Effacement (%): 100 Station: 2 Exam by: A. Tereso Datetime: 03/13/2020 09:45 ASSESSMENT A Monitor Mode: Telemetry Decelerations: Variable Category: Category II Datetime: 03/13/2020 09:34 PAIN Pain Scale: 6 Pain Goal: 6 Datetime: 03/13/2020 09:25 Patient Position/Activity: Left Extreme Anesthesia Comments: Right T10, Left T12. Extreme left position Datetime: 03/13/2020 08:50 Pain Presence: Intermittent Pain Type: Cramping Pain Location: Abdomen; Back Pain Relief Measures: Epidural Given Datetime: 03/13/2020 08:41 Temperature (C): 37.0 Datetime: 03/13/2020 08:37 Hygiene: Rebecca Care Datetime: 03/13/2020 08:30 FHR Baseline Rate : 120 Datetime: 03/13/2020 08:29 Epidural Procedure: Test Dose Datetime: 03/13/2020 08:10 TEACHING Instructional Method: Verbal Plan of Care: Plan of Care Discussed; Vaginal Delivery Labor/Induction: Labor Stages Pain Management: Epidural Datetime: 03/13/2020 07:55 COMMUNICATION Communication: Provider at Bedside Datetime: 03/13/2020 07:12 MATERNAL ASSESSMENT Level of Consciousness: Alert Headache: Denies Breath Sounds, Left: Clear and Equal Breath Sounds, Right: Clear and Equal Nausea/Vomiting: Denies RUQ Epigastric Pain: Denies Datetime: 03/13/2020 07:05 Pain Coping: Talking Through Contractions; Breathing Through Contractions Pain Assessment Comments: Pt. does not want to be asked if she would like pain meds. Will notify n urisng staff when or if she changes her mind. Comfort Measures: Breathing/Relaxation Nurse Giving Report: Payal Coreas RNC OB Nurse Receiving Report: Paz RN Datetime: 03/13/2020 07:00 Respirations: 18 Monitor Interventions for UA: [place] Adjusted Monitor Interventions for FHR: Ultrasound Adjusted Datetime: 03/13/2020 06:35 MEDICATIONS Analgesics/Sedatives: Fentanyl (mcg) @ Datetime: 03/13/2020 06:25 Amnioinfusion: Started Datetime: 03/13/2020 06:00 PATIENT CARE Oxygen Method: Room Air Datetime: 03/13/2020 04:11 Membrane Status: Ruptured Membranes Ruptured Date/Time: 03/13/2020 03:10 Membranes Rupture Method: Artificial Amniotic Fluid Color: Clear Amniotic Fluid Amount: Large Amniotic Fluid Odor: Normal Vaginal Bleeding: Small ANESTHESIA Anesthesia Plans: None Datetime: 03/13/2020 04:00 Strip Reviewed by: A Tereso CNM Datetime: 03/13/2020 03:41 Membrane Comments: medium sized clott and bleeding onto pad w cntxs-CNM called to come into the hos pital and assess Datetime: 03/13/2020 03:15 Notification Reason: Status Update; Status; Labor Status; Membrane Status; Uterine Activity; Pain Communication Comments: Communicated status SROM and pain level 5/10 to A Tereso CNM POC to cont w ex pectant management and hoild miso for now Datetime: 03/13/2020 02:29 Contraction Comments: pt is able to sleep through cntxs Datetime: 03/12/2020 22:00 Actions for Decelerations: Side to Side; IV Bolus Datetime: 03/12/2020 21:49 Provider Reviewed Strip: Yes Datetime: 03/12/2020 19:36 Temperature Route: Oral Unit Routine: Monitoring; Diet/Nutrition Services; Bathroom Privileges; Medications Medications: Cervical Ripening Provider Notified (Name): Graciela menam Datetime: 03/12/2020 18:35 C[place]ical [place] [facility] [place]
== END 2020-03-14 13:00 | disposition home or self-care (01) | DRG 807 ==
LOC: WFO 17:00 → FBP 17:01 → WFO 17:38 → FBP 17:39
PROVIDERS: ADMIT Nurse Practitioner Obstetrics & Gynecology; ATTEND Advanced Practice Midwife
PROC: 3E0E7GC Introduction of Other Therapeutic Substance into Products of Conception, Via Natural or Artificial Opening (ICD-10-PCS; 2020-03-12)
PROC: 10E0XZZ Delivery of Products of Conception, External Approach (ICD-10-PCS; principal; 2020-03-13)
DX: O75.89 Other specified complications of labor and delivery (principal); Z37.0 Single live birth; R21 Rash and other nonspecific skin eruption; O76 Abnormality in fetal heart rate and rhythm complicating labor and delivery; O69.81X0 Labor and delivery complicated by cord around neck, without compression, not applicable or unspecified; Z3A.39 39 weeks gestation of pregnancy
CPT/HCPCS: A9270; J7120

== ENCOUNTER 2020-03-18 12:16 | Outpatient (CLI) | payer BC ==
--- NOTE | 2020-03-18 13:01 | Labor Flowsheet ---
Labor Flowsheet Datetime Report Generated by CPN: 03/18/2020 13:01 Datetime: 03/14/2020 12:50 VITAL SIGNS NBP Sys/Iveth/Mean (mmHg): 148 : 76 : 92 Pulse: 63 Datetime: 03/13/2020 11:39 SpO2 (%): 100 Datetime: 03/13/2020 10:04 Patient Care Comments: placenta Datetime: 03/13/2020 10:02 Stage of : Recovery Datetime: 03/13/2020 10:01 Medication Comments: PP pit started Datetime: 03/13/2020 09:59 Comments: male Datetime: 03/13/2020 09:58 UTERINE ACTIVITY Monitor Mode: External Frequency (min): 2-4 Quality: Strong Duration (sec): 60 Pattern: Normal: <= 5 Contractions in 10 Minutes Resting Tone (Palpate): Relaxed FHR Baseline Changes: No Baseline Change Variability: Moderate 6-25 bpm Accelerations: None Datetime: 03/13/2020 09:54 LaborFlag: Labor Datetime: 03/13/2020 09:48 VAGINAL EXAM Dilatation (cm): 10.0 Effacement (%): 100 Station: 2 Exam by: A. Tereso Datetime: 03/13/2020 09:45 ASSESSMENT A Monitor Mode: Telemetry Decelerations: Variable Category: Category II Datetime: 03/13/2020 09:34 PAIN Pain Scale: 6 Pain Goal: 6 Datetime: 03/13/2020 09:25 Patient Position/Activity: Left Extreme Anesthesia Comments: Right T10, Left T12. Extreme left position Datetime: 03/13/2020 08:50 Pain Presence: Intermittent Pain Type: Cramping Pain Location: Abdomen; Back Pain Relief Measures: Epidural Given Datetime: 03/13/2020 08:41 Temperature (C): 37.0 Datetime: 03/13/2020 08:37 Hygiene: Rebecca Care Datetime: 03/13/2020 08:30 FHR Baseline Rate : 120 Datetime: 03/13/2020 08:29 Epidural Procedure: Test Dose Datetime: 03/13/2020 08:10 TEACHING Instructional Method: Verbal Plan of Care: Plan of Care Discussed; Vaginal Delivery Labor/Induction: Labor Stages Pain Management: Epidural Datetime: 03/13/2020 07:55 COMMUNICATION Communication: Provider at Bedside Datetime: 03/13/2020 07:12 MATERNAL ASSESSMENT Level of Consciousness: Alert Headache: Denies Breath Sounds, Left: Clear and Equal Breath Sounds, Right: Clear and Equal Nausea/Vomiting: Denies RUQ Epigastric Pain: Denies Datetime: 03/13/2020 07:05 Pain Coping: Talking Through Contractions; Breathing Through Contractions Pain Assessment Comments: Pt. does not want to be asked if she would like pain meds. Will notify n urisng staff when or if she changes her mind. Comfort Measures: Breathing/Relaxation Nurse Giving Report: Payal Coreas RNC OB Nurse Receiving Report: Paz RN Datetime: 03/13/2020 07:00 Respirations: 18 Monitor Interventions for UA: [place] Adjusted Monitor Interventions for FHR: Ultrasound Adjusted Datetime: 03/13/2020 06:35 MEDICATIONS Analgesics/Sedatives: Fentanyl (mcg) @ Datetime: 03/13/2020 06:25 Amnioinfusion: Started Datetime: 03/13/2020 06:00 PATIENT CARE Oxygen Method: Room Air Datetime: 03/13/2020 04:11 Membrane Status: Ruptured Membranes Ruptured Date/Time: 03/13/2020 03:10 Membranes Rupture Method: Artificial Amniotic Fluid Color: Clear Amniotic Fluid Amount: Large Amniotic Fluid Odor: Normal Vaginal Bleeding: Small ANESTHESIA Anesthesia Plans: None Datetime: 03/13/2020 04:00 Strip Reviewed by: A Tereso CNM Datetime: 03/13/2020 03:41 Membrane Comments: medium sized clott and bleeding onto pad w cntxs-CNM called to come into the hos pital and assess Datetime: 03/13/2020 03:15 Notification Reason: Status Update; Status; Labor Status; Membrane Status; Uterine Activity; Pain Communication Comments: Communicated status SROM and pain level 5/10 to A Tereso CNM POC to cont w ex pectant management and hoild miso for now Datetime: 03/13/2020 02:29 Contraction Comments: pt is able to sleep through cntxs Datetime: 03/12/2020 22:00 Actions for Decelerations: Side to Side; IV Bolus Datetime: 03/12/2020 21:49 Provider Reviewed Strip: Yes Datetime: 03/12/2020 19:36 Temperature Route: Oral Unit Routine: Monitoring; Diet/Nutrition Services; Bathroom Privileges; Medications Medications: Cervical Ripening Provider Notified (Name): Graciela menam Datetime: 03/12/2020 18:35 Cervical Ripening Agents: Cytotec @ [facility] [place]
== END 2020-03-18 12:30 | disposition home or self-care (01) ==
LOC: WFO 12:16 → FBP 12:20 → WFO 12:30
PROVIDERS: ATTEND Nurse Practitioner Obstetrics & Gynecology
DX: O92.70 Unspecified disorders of lactation (principal)
CPT/HCPCS: 99402